=== PATIENT | female | born 1955 | race Caucasian/White ===

== ENCOUNTER 2018-12-14 14:18 | Emergency (ER) | payer OTHER ==
--- NOTE | 2018-12-14 14:41 | ED Physician Documentation ---
History of Present Illness - Stated complaint Stated Complaint: LOWER ABD PX - Chief complaint Chief Complaint: Abd Pain - History obtained from History obtained from: Patient - Additonal information Additional information: Patient is a 63-year-old female with history of diabetes and hyperlipidemia presenting with several days of left lower quadrant pain that radiates towards her mid abdomen associated with muscle spasm. Patient denies back pain, urinary changes, stool changes. She also denies fever, nausea, or vomiting.No other improving or worsening factors noted. Review of Systems Constitutional: denies: Fever GI: reports: Abdominal Pain. 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 - Present Medications Home Medications: Ambulatory Orders Medication Instructions Recorded Confirmed Aspirin 81 mg 12/14/18 Atorvastatin Calcium 40 mg DAILY 12/14/18 12/14/18 Ciprofloxacin HCl [Cipro] 500 mg PO BID #20 tablet 12/14/18 Fluticasone [Flonase] 1 spray 12/14/18 Gabapentin 100 mg TID 12/14/18 12/14/18 Metformin HCl [Metformin HCl ER] 500 mg DAILY 12/14/18 12/14/18 Metronidazole [Flagyl] 500 mg PO TID 10 Days tablet 12/14/18 - Allergies Allergies/Adverse Reactions: Allergies Allergy/AdvReac Type Severity Reaction Status Date / Time No Known Drug Allergies Allergy Verified 12/14/18 14:23 PD ED PE NORMAL - Vitals Vital signs reviewed: Yes - General General: Alert and oriented X 3, No acute distress, Well developed/nourished - HEENT HEENT: Atraumatic, Moist mucous membranes - Neck Neck: Supple, no meningeal sign - Cardiac Cardiac: RRR, No murmur - Respiratory Respiratory: No respiratory distress, Clear bilaterally - Abdomen Abdomen: Normal bowel sounds, Soft, Non distended. No: Non tender (LLQ tenderness) - Derm Derm: Normal color, Warm and dry, No rash - Extremities Extremities: No deformity, No tenderness to palpate - Neuro Neuro: Alert and oriented X 3, No motor deficit, No sensory deficit - Psych Psych: Normal mood, Normal affect Results - Vitals Vitals: Vital Signs - 24 hr 12/14/18 14:20 Temperature 36.0 C L Heart Rate 81 Respiratory 18 Rate Blood Pressure 134/72 H O2 Saturation 99 Oxygen O2 Source Room air - Labs Labs: Laboratory Tests 12/14/18 12/14/18 12/14/18 15:00 15:00 15:00 WBC 8.8 RBC 4.23 Hgb 12.4 Hct 38.9 MCV 92.0 MCH 29.3 MCHC 31.9 L RDW 14.0 Plt Count 253 MPV 9.6 Neut # (Auto) 3.4 Lymph # (Auto) 4.0 H [place] # (Auto) 0.7 Eos # (Auto) 0.7 Baso # (Auto) 0.1 Absolute Nucleated RBC 0.00 Nucleated RBC % 0.0 Sodium 142 Potassium 3.7 Chloride 101 Carbon Dioxide 28 Anion Gap 13.0 BUN 14 Creatinine 0.8 Estimated GFR (MDRD) 72 L Glucose 131 H Calcium 9.6 Total Bilirubin 0.6 AST 27 ALT 36 Alkaline Phosphatase 49 Total Protein 7.7 Albumin 3.8 Globulin 3.9 Albumin/Globulin Ratio 1.0 Lipase 37 Urine Color YELLOW Urine Clarity CLEAR Urine pH 6.5 Ur Specific [place] <=1.005 Urine Protein NEGATIVE Urine Glucose (UA) NEGATIVE Urine Ketones NEGATIVE Urine Occult Blood NEGATIVE Urine Nitrite NEGATIVE Urine Bilirubin NEGATIVE Urine Urobilinogen 0.2 (NORMAL) Ur Leukocyte Esterase NEGATIVE Ur Microscopic Review NOT INDICATED Urine Culture Comments NOT INDICATED PD MEDICAL DECISION MAKING - ED course Complexity details: reviewed results, re-evaluated patient, considered differential, d/w patient, d/w family ED course: Patient presenting with concerning findings for diverticulitis based on location of discomfort. Have lower suspicion for renal disease, UTI, obstruction, AAA, or other intra-abdominal pathology at this time. Patient comfortable did not require medications. Screening lab work and urinalysis obtained which returned relatively unremarkable. CT abdomen/pelvis did find evidence of sigmoid diverticulitis, as well as incidental findings of osteonecrosis of hips. Patient has been advised of results, as well as incidental findings. Disc with imaging, as well as radiology read provided to patient. Patient is aware of the hip issues including necrosis. Discussed use of antibiotics for diverticulitis, diet hydration recommendations, return precautions, appropriate follow-up. Patient voiced understanding and is comfortable with discharge plan. Departure - Departure Disposition: 01 Home, Self Care Clinical Impression: Diverticulitis Condition: Good Instructions: ED Diverticulitis Follow-Up: your,doctor [Other] - Within 3 Days Prescriptions: Ciprofloxacin HCl [Cipro] 500 mg PO BID #20 tablet Metronidazole [Flagyl] 500 mg PO TID 10 Days tablet Comments: Please continue any home medications as previously recommended. Please take antibiotics as prescribed. Recommend taking antibiotics with small amount of food to avoid upset stomach. Please follow-up with primary care physician in next 2 to 3 days and return to ED sooner if experience worsening symptoms or have other concerns.
[2018-12-14] MEDS ORDERED: SODIUM CHLORIDE 0.9% 1,000 ML IV ONE (14:49)
[2018-12-14 15:03] LABS: BASOPHILS # (AUTO) 0.1 10^3/uL (0.0-0.1); BASOPHILS % (AUTO) 0.7 %; EOSINOPHILS # (AUTO) 0.7 10^3/uL (0.0-0.7); EOSINOPHILS % (AUTO) 7.6 %; HGB - HEMOGLOBIN 12.4 g/dL (12.0-16.0); LYMPHOCYTES % (AUTO) 45.2 %; MEAN CORPUSCULAR HEMOGLOBIN 29.3 pg (27.0-31.0); MEAN CORPUSCULAR HGB CONC 31.9 g/dL (32.0-36.0); MEAN PLATELET VOLUME 9.6 fL (7.9-10.8); MONOCYTES # (AUTO) 0.7 10^3/uL (0.0-1.0); MONOCYTES % (AUTO) 7.9 %; NEUTROPHILS # (AUTO) 3.4 10^3/uL (1.5-6.6); NEUTROPHILS % (AUTO) 38.3 %; PLT - PLATELET COUNT 253 10^3/uL (130-450); RED BLOOD COUNT 4.23 10^6/uL (4.20-5.40); WHITE BLOOD COUNT 8.8 x10^3/uL (4.8-10.8)
[2018-12-14 15:11] LABS: BILIRUBIN,URINE NEGATIVE (NEGATIVE); GLUCOSE, URINE (UA) NEGATIVE (NEGATIVE); KETONES,URINE (UA) NEGATIVE (NEGATIVE); LEUKOCYTE ESTERASE, URINE NEGATIVE (NEGATIVE); NITRITE,URINE NEGATIVE (NEGATIVE); OCCULT BLOOD,URINE NEGATIVE (NEGATIVE); PH,URINE 6.5 PH (5.0-7.5); PROTEIN,URINE NEGATIVE (NEGATIVE); UROBILINOGEN,URINE 0.2 (NORMAL) E.U./dL (NORMAL)
[2018-12-14 15:17] LABS: CLARITY,URINE CLEAR (CLEAR)
[2018-12-14 15:22] LABS: BILIRUBIN,TOTAL 0.6 mg/dL (0.2-1.0); CALCIUM 9.6 mg/dL (8.5-10.3); CREATININE 0.8 mg/dL (0.4-1.0); TOTAL PROTEIN 7.7 g/dL (6.7-8.2)
[2018-12-14 15:23] LABS: ALBUMIN 3.8 g/dL (3.2-5.5)
[2018-12-14] MEDS ORDERED: IOVERSOL 320 100 ML VIAL IVP ONE ×2 (15:45→15:51)
--- NOTE | 2018-12-14 16:30 | CT Report ---
Reason: concern for diverticulitis Procedure Date: 12/14/2018 Accession Number: [id number] / [id number] Procedure: CT - Abdomen/Pelvis W CPT Code: FULL RESULT: EXAM: CT ABDOMEN AND PELVIS EXAM DATE: 12/14/2018 03:51 PM. CLINICAL HISTORY: Left lower quadrant pain. COMPARISONS: None. TECHNIQUE: Routine helical CT imaging was performed through the abdomen and pelvis. IV contrast: OPTI 320 90ML. Enteric contrast: No. Reconstructions: Coronal and sagittal. In accordance with CT protocol optimization, one or more of the following dose reduction techniques were utilized for this exam: automated exposure control, adjustment of mA and/or KV based on patient size, or use of iterative reconstructive technique. FINDINGS: Lung Bases: Unremarkable. Liver: No masses. Gallbladder/Bile Ducts: Surgical clips in the gallbladder fossa. Spleen: Unremarkable. Pancreas: Unremarkable. Adrenal Glands: Unremarkable. Kidneys: No masses or hydronephrosis. Prominent bilateral extrarenal pelvis. Peritoneal Cavity/Bowel: Sigmoid diverticulosis with wall thickening and mild pericolonic stranding. No extraluminal air or focal fluid collection to suggest perforation or abscess. Vasculature: Moderate atherosclerotic calcification of the infrarenal abdominal aorta. Stent seen within the left iliac vein. Bones: Sclerosis and cortical irregularity of the right femoral head. Ill-defined patchy sclerosis left femoral head. Other: None. IMPRESSION: 1. Sigmoid diverticulitis. 2. Suggestion of bilateral osteonecrosis of the hips, including cortical irregularity of the right femoral head. Recommend follow up MRI for additional evaluation. [facility]
[2018-12-14 16:52] VITALS: BP 134/67
== END 2018-12-14 16:53 | disposition home or self-care (01) ==
LOC: ED 14:18
DX: K57.32 Diverticulitis of large intestine without perforation or abscess without bleeding (principal); M87.9 Osteonecrosis, unspecified; E11.9 Type 2 diabetes mellitus without complications; Z79.84 Long term (current) use of oral hypoglycemic drugs; E78.5 Hyperlipidemia, unspecified; Z79.82 Long term (current) use of aspirin
CPT/HCPCS: 36415; 74177; 80053; 81003; 83690; 85025; 96360; 99284; Q9967; 81001; 87086